=== PATIENT | female | born 1955 | race Caucasian/White ===

== ENCOUNTER 2017-12-14 20:16 | Emergency (ER) | payer OTHER ==
[2017-12-14 20:37] LABS: Bilirubin Negative (Negative); Blood, Urine Moderate (Negative); Glucose, Urine (Dipstick) Negative (Negative); Leukocyte Large (Negative); Nitrite Positive (Negative); Protein, Urine (Dipstick) 30 mg/dL (Neg-Trace); Specific Gravity, Urine 1.015 (1.005-1.030); Urobilinogen 0.2 mg/dL (0.2-1.0)
[2017-12-14 20:45] LABS: Clarity Cloudy (Clear)
[2017-12-14 20:47] LABS: Bacteria/HPF 4+ HPF (None Seen)
[2017-12-14] MEDS ORDERED: cefTRIAXone\\ROCEPHIN 1 GM VIAL ONE (21:00)
[2017-12-14 21:17] LABS: #Basophils 0.1 thou/uL (0.0-0.2); #Eosinphils 0.1 thou/uL (0.0-0.7); #Lymphocytes 1.8 thou/uL (1.20-3.40); #Monocytes 0.8 thou/uL (0.11-0.59); #Neutrophils 6.6 thou/uL (1.40-6.50); %Basophils 0.6 % (0.0-1.0); %Eosinophils 1.1 % (0.0-10.0); %Lymphocytes 19.2 % (21.0-51.0); %Monocytes 8.4 % (0.0-10.0); %Neutrophils 70.7 % (42.0-75.0); Hemoglobin 14.2 g/dL (12.0-16.0); Mean Corpuscular HGB CONC 35.5 g/dL (32.0-36.0); Mean Corpuscular Hemoglobin 32.4 pg (27.0-31.0); Mean Corpuscular Volume 91.3 fl (81.0-99.0); Mean Platelet Volume 9.7 fL (7.4-10.4); Platelet Count 202 thou/uL (130-400); RBC Distribution Width 11.2 % (11.5-14.5); White Blood Cell (WBC) Count 9.3 thou/uL (4.8-10.8)
[2017-12-14 21:29] LABS: Anion Gap 13 mmol/L (10-20); BUN (Urea Nitrogen) 13 mg/dL (9.8-20.1); Calc. Creatinine Clearance 0 mL/min (70-130); Calcium 9.4 mg/dL (7.8-10.44); Carbon Dioxide 31 mmol/L (22-29); Chloride 103 mmol/L (98-107); Estimated GFR-MDRD 81; Glucose 109 mg/dL (70-105); Potassium 4.3 mmol/L (3.5-5.1); Sodium 143 mmol/L (136-145)
--- NOTE | 2017-12-14 22:53 | CT ---
CT ABDOMEN AND PELVIS WITHOUT CONTRAST STONE PROTOCOL 12/14/17 HISTORY: Abdominal pain. COMPARISON: CT abdomen and pelvis 2014. FINDINGS: Lung bases are clear. No pericardial effusion. There is moderate left sided hydroureteronephrosis similar to the comparison examination from 2015. N o distal left obstructing ureteral calculus is seen. The distal left ureter does taper to a normal ca liber. This appears just proximal to the ureterovesicular junction. No renal calculi. Appendix is vis ualized and is normal. No free intraperitoneal gas or fluid. No significant left sided perinephric st randing. There are a few small hypodense partial small bowel mesenteric lymph nodes. IMPRESSION: Moderate left sided hydroureteronephrosis without additional obstructing calculus. A distal left uret er tapers to a normal size at the ureterovesicular junction. No significant left sided perinephric st anding. This may be sequela of a recently passed stone versus a distal left ureteral stricture. Small nonvisualized urothelial malignant process cannot be totally excluded. POS: [facility]
== END 2017-12-14 22:38 | disposition home or self-care (01) ==
LOC: SCSER 20:16
DX: N13.2 Hydronephrosis with renal and ureteral calculous obstruction (principal); N10 Acute pyelonephritis; N39.0 Urinary tract infection, site not specified
CPT/HCPCS: 74176; 80048; 81003; 81015; 85025; 87077; 87086; 87186; 96365; J0696

== ENCOUNTER 2018-04-18 13:24 | Outpatient (CLI) | payer OTHER | END 2018-04-18 13:25 | disposition home or self-care (01) | LOC: BICMAMMO 13:24 | PROVIDERS: ATTEND Internal Medicine | DX: Z12.31 Encounter for screening mammogram for malignant neoplasm of breast (principal); Z80.3 Family history of malignant neoplasm of breast | CPT/HCPCS: 77063; 77067 ==